=== PATIENT | female | born 1940 | race Caucasian/White ===

== ENCOUNTER 2016-08-11 01:27 | Emergency (ER) | payer OTHER ==
[2016-08-11 01:47] VITALS: BMI 27.3
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
[2016-08-11 02:30] LABS: BASOPHIL 0.8 % (0-2.0); EOSINOPHIL 1.5 % (0-4.5); MCH 29.8 pg (25.7-33.7); MCHC 32.5 g/dl (32.0-36.0); MEAN PLT VOLUME 7.3 fl (7.5-11.1); NEUTROPHILS 54.9 % (42.8-82.8); PLATELET COUNT 301 K/MM3 (134-434); RDW 13.7 % (11.6-15.6); WHITE BLOOD COUNT 9.6 K/mm3 (4.0-10.0)
[2016-08-11 02:41] LABS: ALBUMIN 3.6 g/dl (3.4-5.0); C-REACTIVE PROTEIN 1.2 MG/DL (0.00-0.3); CALCIUM 8.8 mg/dL (8.5-10.1); CREATININE 1.1 mg/dL (0.55-1.02)
[2016-08-11 02:43] LABS: BILIRUBIN,TOTAL 0.3 mg/dL (0.2-1.0); TOT PROT 7.4 g/dl (6.4-8.2)
[2016-08-11] MEDS ORDERED: VANCOMYCIN 1,000 MG in DEXTROSE 5%-WATER - 250 ML IVPB ONE (06:16)
[2016-08-11] MEDS ORDERED: VANCOMYCIN 1 GRAM (PRE-DOCKED) 250 ML IVPB ONE (07:17)
--- NOTE | 2016-08-11 07:20 | PDOC ---
[id number] 99 08/11/16 01:44 08/11/16 05:56 08/11/16 05:56 08/11/16 05:56 08/11/16 05:56 ED Treatment Course - LABORATORY CBC & Chemistry Diagram: 08/11/16 02:15 08/11/16 02:15 - ADDITIONAL ORDERS Additional order review: Laboratory Results 08/11/16 02:15 Sodium 140 Potassium 4.2 Chloride 101 Carbon Dioxide 30 Anion Gap 9 BUN 16 D Creatinine 1.1 H Creat Clearance w eGFR 48.69 Random Glucose 98 D Calcium 8.8 Total Bilirubin 0.3 D AST 36 D ALT 36 D Alkaline Phosphatase 70 C-Reactive Protein 1.2 H Total Protein 7.4 D Albumin 3.6 08/11/16 02:15 RBC 4.72 MCV 92.0 MCHC 32.5 RDW 13.7 MPV 7.3 L Neutrophils % 54.9 Lymphocytes % 32.2 Monocytes % 10.6 H Eosinophils % 1.5 Basophils % 0.8 Medical Decision Making - Medical Decision Making 08/11/16 07:17 The nursing notes and vital signs have been reviewed and I have discussed the case with Casiano and agree with the HMP as documented in his electronic medical record. The patient is a 75-year-old woman who sustained an accidental puncture wound to her nondominant hand in the web space of the left thumb earlier yesterday and over the course of the day had increased pain and swelling. On physical exam the patient is afebrile there appears to be a puncture wound that is not actively bleeding in the webspace between the first and second digits. There is diffuse crepitus in the hand and the forearm. I agree with the physical examination as documented by the PA. The differential diagnosis includes but is not limited to: Necrotizing fasciitis, cellulitis, deep tissue infection. Plan is to get a CT of the left upper extremity. The patient has been pancultured and has been given broad-spectrum antibiotics. Hand surgery has been called and the patient is to be admitted to the hospital. *DC/Admit/Observation/Transfer Diagnosis at time of Disposition: Puncture wound Subcutaneous emphysema Qualifiers: Encounter type: initial encounter Qualified Code(s): T79.7XXA - Traumatic subcutaneous emphysema, initial encounter - Discharge Dispostion Disposition: HOME Condition at time of disposition: Improved Admit: No - Prescriptions Prescriptions: Sulfamethoxazole/Trimethoprim [Bactrim Ds Tablet] 1 each PO BID #20 tablet - Referrals Referrals: Suresh Hall MD [Staff Physician] - Call tomorrow Jb Schneider MD [Primary Care Provider] - Call tomorrow - Patient Instructions Printed Discharge Instructions: DI for Puncture Wound, DI for Wound Infection Additional Instructions: Discharge Instructions: -Take antibiotics as prescribed -Ice and elevate the affected arm. -Follow up with Dr. Schneider and Dr. Hall as soon as possible -Return to the ER with any worsening or concerning symptoms
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
[2016-08-11] MEDS ORDERED: TETANUS AND DIPHTHERIA TOXOID 0.5 ML DISP.SYRIN IM ONE (07:36)
[2016-08-11 08:53] VITALS: TEMP 97.9
[2016-08-11 10:35] VITALS: BP 152/85; PULSE 77
== END 2016-08-11 10:35 | disposition home or self-care (01) ==
LOC: JER 01:27
PROC: 3E0234Z Introduction of Serum, Toxoid and Vaccine into Muscle, Percutaneous Approach (ICD-10-PCS; principal; 2016-08-11)
PROC: 3E03329 Introduction of Other Anti-infective into Peripheral Vein, Percutaneous Approach (ICD-10-PCS; 2016-08-11)
DX: S61.432A Puncture wound without foreign body of left hand, initial encounter (principal); T79.7XXA Traumatic subcutaneous emphysema, initial encounter; W26.0XXA Contact with knife, initial encounter
CPT/HCPCS: 36415; 73090-TC-LT; 73130-TC-LT; 73200-TC-RT; 80053; 85025; 86140; 90471; 96365; 99283-25

== ENCOUNTER → 2017-01-09 | Day surgery (SDC) | payer OTHER ==
--- NOTE | 2017-01-13 13:31 | PATH ---
Surgical Pathology Report Patient Name: MORELIA PIERCE [facility]. Rec. #: [id number] /Age/Gender: 1940 (Age: 76) / F Account: [id number] Location: [facility], [place] Taken: 01/09/2017 Received: 01/09/2017 Reported: 01/13/2017 Physicians: Annabelle Kulkarni M.D. Specimen(s) Received A: LEFT BREAST SPECIMEN WITH MASS AND CALCIFICATIONS B: LEFT BREAST SPECIMEN WITHOUT CALCIFICATIONS Clinical History Nonpalpable lesion Mammographic findings: Suspicious Final Diagnosis A. BREAST, LEFT, WITH MASS AND CALCIFICATIONS, STEREOTACTIC BIOPSY: BENIGN BREAST TISSUE SHOWING PROLIFERATIVE FIBROCYSTIC CHANGES INCLUDING MICROCYSTS, STROMAL FIBROSIS AND USUAL DUCTAL HYPERPLASIA (UDH). CALCIFICATIONS ARE PRESENT IN ASSOCIATION WITH CYST CONTENTS. B. BREAST, LEFT, WITHOUT CALCIFICATIONS, STEREOTACTIC BIOPSY: BENIGN BREAST TISSUE SHOWING PROLIFERATIVE FIBROCYSTIC CHANGES INCLUDING MICROCYSTS, STROMAL FIBROSIS AND USUAL DUCTAL HYPERPLASIA (UDH). Electronically Signed By Yesika Dhaliwal M.D. Prashant Montilla M.D. Gross Description A. Received in formalin, labeled "left breast specimen with mass + calcifications" are 2.0 x 1.8 x 0.3 cm in aggregate size multiple fragments of bautista-white fibrofatty tissue. The specimen is submitted entirely in one cassette. B. Received in formalin, labeled "left breast specimen without calcifications" are 1.9 x 1.8 x 0.2 cm in aggregate size multiple fragments of bautista-white fibrofatty tissue. The specimen is submitted entirely in one cassette. Time to fixation: 5 min Formalin fixation time: ~7h final/01/09/2017
== END | disposition home or self-care (01) ==
LOC: FMAMMOTONE 11:39
PROVIDERS: ATTEND Obstetrics & Gynecology
PROC: 0HBU3ZX Excision of Left Breast, Percutaneous Approach, Diagnostic (ICD-10-PCS; principal; 2017-01-09)
DX: N60.12 Diffuse cystic mastopathy of left breast (principal)
CPT/HCPCS: 19081; 87899; 88305-TC; A4648